=== PATIENT | female | born 1945 | race Caucasian/White ===

== ENCOUNTER 2022-10-17 17:28 | Emergency (ER) | payer MEDICARE, SELFPAY ==
[2022-10-17 17:31] VITALS: BP 180/67; PULSE 52; RESP 16; TEMP 36.7; O2SAT 96; BMI 36.7
[2022-10-17 17:41] VITALS: BP 160/90
--- NOTE | 2022-10-17 17:50 | ED_ITS ---
HPI - Head Injury General Chief complaint: Head Injury Stated complaint: FALL HEAD INJURY Time Seen by Provider: 10/17/22 17:42 Source: patient Mode of arrival: Wheelchair Limitations: no limitations History of Present Illness HPI Narrative: 77-year-old female here with the fall. She was with her granddaughter who was adjacent to her and observed the whole event. 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 Her glasses came off. There is no loss of consciousness. She has not been repeating herself. She is complaining of pain primarily pain in her forehead area and the back of her neck. She does not have a paresis paresthesias tingling numbness or loss of sensation or movement to her upper or lower limb. She is not on any anticoagulation therapy. She's not had surgery on her head or neck previously. Related Data Allergies Allergy/AdvReac Type Severity Reaction Status Date / Time No Known Drug Allergies Allergy Verified 10/17/22 17:39 Exam Narrative Exam Narrative: patient awake alert oriented ?3 GCS is fifteen she's pleasant good historian not repeating herself no evidence of confusion or altered mental status at all. Constitutional skin warm and dry mucous members are moist and pink vital signs are noted. She has a oblique 3 cm full-thickness laceration above the left eyebrow. There is no evidence CSF otorrhea or rhinorrhea. Rest of cranial fact facial structures are normal. Eye examination shows extraocular muscles be normal pupillary light response is normal. There is no nystagmus. Chest and torso shows no evidence of tenderness to palpation of the shoulders clavicles and sternum or rib area. She does complain of posterior neck pain. Neurological examination she has excellent movement of all extremities no sensory disturbance no muscle weakness to the major and minor muscle groups the forearm and upper limbs. Constitutional Vital Signs, click to edit/add: Last Vital Signs Temp 98.1 F 10/17/22 17:31 Pulse 52 L 10/17/22 17:31 Resp 16 10/17/22 17:31 BP 160/90 H 10/17/22 17:41 Pulse Ox 96 10/17/22 17:31 O2 Del Method Room Air 10/17/22 17:31 Course Vital Signs Vital signs: Vital Signs Temperature 98.1 F 10/17/22 17:31 Pulse Rate 52 L 10/17/22 17:31 Respiratory Rate 16 10/17/22 17:31 Blood Pressure 180/67 H 10/17/22 17:31 Pulse Oximetry 96 10/17/22 17:31 Oxygen Delivery Method Room Air 10/17/22 17:31 Temperature 98.1 F 10/17/22 17:31 Pulse Rate 52 L 10/17/22 17:31 Respiratory Rate 16 10/17/22 17:31 Blood Pressure 160/90 H 10/17/22 17:41 Pulse Oximetry 96 10/17/22 17:31 Oxygen Delivery Method Room Air 10/17/22 17:31 MDM - Head Injury MDM Narrative Medical decision making narrative: very pleasant female had an uncomplicated fall with subsequent laceration to her forehead. She will need CT imaging of head and neck although her cognition and mental status is normal. The facial laceration will require suturing. The care will be turned over to Dr. Galvez at change of shift pending final disposition is pending her CT imaging Discharge Plan Discharge Chief Complaint: Head Injury Clinical Impression: Closed head injury Referrals: LUIS M BOWEN [Primary Care Provider] - 1 week
--- NOTE | 2022-10-17 18:31 | CT_ITS ---
The [address] [address] Patient Name: ALONDRA STOVALL MRN: [id number] date: 1945 Sex: F Assigned Patient Location: ER Current Patient Location: ER Accession/Order Number: [id number] Exam Date: 10/17/2022 18:53 Report Date: 10/17/2022 19:48 At the request of: ARISTEO GARCIA Procedure: CT head/brain wo con CT SCAN OF THE HEAD WITHOUT CONTRAST, 10/17/2022 6:53 PM EDT: COMPARISON: None. CLINICAL HISTORY: Fall/hitting head. TECHNIQUE: 3 mm axial images performed through the head without contrast. 3 mm sagittal and coronal MPR reconstructions performed. Dose reduction techniques were achieved by using automated exposure control and/or adjustment of mA and/or kV according to patient size and/or use of iterative reconstruction technique. FINDINGS: Age-related cerebral and cerebellar atrophy with associated ventricular prominence. Nonspecific periventricular white matter low attenuation, likely a sequela of small vessel disease. No acute hemorrhage, mass effect, or midline shift. Visualized paranasal sinuses, mastoid air cells and bony structures are unremarkable. CT/CT head/brain wo con IMPRESSION: 1. No acute intracranial abnormality identified. 2. Mild age-related atrophy with associated ventricular prominence and minimal periventricular white matter small vessel disease. Electronically authenticated by: Francie WAGNER Date: 10/17/2022 19:48
--- NOTE | 2022-10-17 18:32 | CT_ITS ---
[address] [address] Patient Name: ALONDRA STOVALL MRN: [id number] date: 1945 Sex: F Assigned Patient Location: ER Current Patient Location: ER Accession/Order Number: [id number] Exam Date: 10/17/2022 18:53 Report Date: 10/17/2022 19:45 At the request of: ARISTEO GARCIA Procedure: CT cervical spine wo con EXAM: CT scan of the cervical spine without contrast. Dose reduction technique used: Automated exposure control and/or adjustment of the mA and/or kV according to patient size and/or use of iterative reconstruction technique. REASON FOR EXAM: trauma COMPARISON: None FINDINGS: No fractures, dislocations or acute malalignment of the cervical spine. Cervical spine degenerative changes with multilevel bilateral mild and moderate neural foraminal stenoses. Multilevel mild spinal canal stenoses. Remainder unremarkable. CT/CT cervical spine wo con IMPRESSION: No acute cervical spine abnormalities. Electronically authenticated by: KEITH GALICIA Date: 10/17/2022 19:45
[2022-10-17] MEDS: BACITRACIN 0.9 GM PACKET 1 PACKET TOPICAL (19:28)
[2022-10-17] MEDS: ADACEL DIPH,PERTUSS(ACELL),TET VAC/PF 0.5 ML ADULT SYRINGE IM (19:47)
--- NOTE | 2022-10-17 19:48 | ED.HEATRA1 ---
HPI - Head Injury General Chief complaint: Head Injury Stated complaint: FALL HEAD INJURY Time Seen by Provider: 10/17/22 17:42 Source: patient Mode of arrival: Wheelchair Limitations: no limitations Related Data Allergies Allergy/AdvReac Type Severity Reaction Status Date / Time No Known Drug Allergies Allergy Verified 10/17/22 17:39 Exam Constitutional Vital Signs, click to edit/add: Last Vital Signs Temp 98.1 F 10/17/22 17:31 Pulse 52 L 10/17/22 17:31 Resp 16 10/17/22 17:31 BP 160/90 H 10/17/22 17:41 Pulse Ox 96 10/17/22 17:31 O2 Del Method Room Air 10/17/22 17:31 Course Vital Signs Vital signs: Vital Signs Temperature 98.1 F 10/17/22 17:31 Pulse Rate 52 L 10/17/22 17:31 Respiratory Rate 16 10/17/22 17:31 Blood Pressure 180/67 H 10/17/22 17:31 Pulse Oximetry 96 10/17/22 17:31 Oxygen Delivery Method Room Air 10/17/22 17:31 Temperature 98.1 F 10/17/22 17:31 Pulse Rate 52 L 10/17/22 17:31 Respiratory Rate 16 10/17/22 17:31 Blood Pressure 160/90 H 10/17/22 17:41 Pulse Oximetry 96 10/17/22 17:31 Oxygen Delivery Method Room Air 10/17/22 17:31 MDM - Head Injury MDM Narrative Medical decision making narrative: Laceration repair: Done under sterile conditions. The use of Shur-Clens prep the area. Local injection with lidocaine 1% was used, approximately 3 cc. The wound was irrigated copiously with normal saline. The wound was explored there was no evidence of foreign material. The laceration was approximated with 4-0 nylon. 6 simple interrupted sutures were placed. Patient tolerated the procedure well. The patient was neurovascularly intact post. the patient had bacitracin applied to the laceration and a dry sterile dressing was placed. The patient will need to follow-up in the next 6-7 days for removal Discharge Plan Discharge Chief Complaint: Head Injury Clinical Impression: Closed head injury Referrals: LUIS M BOWEN [Primary Care Provider] - 1 week
== END 2022-10-17 20:10 | disposition home or self-care (01) ==
PROVIDERS: Emergency Provider Emergency Medicine; PCP Nurse Practitioner Family
DX: S01.81XA Laceration without foreign body of other part of head, initial encounter (principal); S09.8XXA Other specified injuries of head, initial encounter; W19.XXXA Unspecified fall, initial encounter; Z23 Encounter for immunization
CPT/HCPCS: 12013; 70450; 72125; 90471; 90715; 99285